=== PATIENT | female | born 1950 | race Caucasian/White ===

== ENCOUNTER 2024-01-13 09:53 | Emergency (ER) | payer OTHER, SELFPAY ==
[2024-01-13 10:02] VITALS: BP 164/95; PULSE 63; RESP 14; TEMP 36.3; O2SAT 96; BMI 16.9
--- NOTE | 2024-01-13 10:07 | ED.UPPEXIN ---
HPI - Extremity Injury (Upper) General Time Seen by Provider: 10:07 Date Seen: 01/13/24 Chief Complaint: Extremity Pain/Injury, Upper Stated Complaint: wrist injury Time Seen by Provider: 01/13/24 10:05 Source: patient and RN notes reviewed Mode of arrival: ambulatory Limitations: no limitations History of Present Illness HPI narrative: This 74-year-old female is coming in after she tripped on a curb, falling and hitting her left wrist. She did hit her chin but is not feeling any significant pain. She can open and close her jaw, feels like her teeth are normal, no dental pain. She has no headache, no loss of consciousness. She had cataract surgery this past week, feels like her vision is just mildly off. She also feels that she is baseline clumsy. She states she has some sore areas, did skin up her right lower leg, did put bandages on it. She is having no pain in the bones with walking however. Her left wrist has been fractured in does have a pin in it per her report. It is her wrist that she is concerned about which brought her here. She had no medical reason for the fall on questioning, just feels like her vision is a little off and did not gauge the curb correctly. MD complaint: injury to: left and wrist Related Data Home Medications Medication Instructions Recorded Confirmed alendronate 70 mg tablet 70 mg PO 01/13/24 Allergies Allergy/AdvReac Type Severity Reaction Status Date / Time No Known Drug Allergies Allergy Verified 01/13/24 10:01 Review of Systems Status of ROS: Reports: 6 or more systems reviewed and unremarkable except as noted in History and below [facility] Medical History Wrist fracture ?S62.109A - Fracture of unspecified carpal bone, unspecified wrist, initial encounter for closed fracture (ICD-10) Surgical History H/O wrist surgery ?Z98.890 - Other specified postprocedural states (ICD-10) Hx of tonsillectomy ?Z90.89 - Acquired absence of other organs (ICD-10) Social History Smoking Status: Never smoker Little interest or pleasure in doing things: not at all Feeling down, depressed, or hopeless: several days Exam Const: Vital Signs, click to edit/add: Vital Signs - 24 hr 01/13/24 10:02 Temperature 97.3 F L Pulse Rate [Pulse Oximeter] 63 Respiratory Rate 14 Blood Pressure [Ri ght Upper Arm] 164/95 H Pulse Oximetry 96 Oxygen Delivery Me thod Room Air Patient is alert, interactive, no apparent distress. She is ambulatory into the ED of her own accord. She has some bandages on the right lower extremity. She states ambulating is not painful in her legs. Face and head atraumatic. She has no palpable tenderness over her TMJs down to the mandible into the chin. Dentition are normal, occlude normally. Oropharynx without traumatic change. Neck supple, nontender, no masses. Breathing easily on room air, lungs sound clear. CV regular rate and rhythm, no murmur, normal S1-S2. She has normal neurovascular status of her left hand, good range of motion of the fingers. She has pain medially along the ulnar area of the wrist. No significant swelling or deformity noted. No pain up into the forearm elbow, arm or shoulder at this time. Documenting provider has reviewed patient's vital signs: yes Course Course ED Course: We will obtain images of her left wrist to rule out fracture. She will let me know if anything else becomes problematic during her time here. Reevaluation(s) Time of Reevaluation #1: 11:08 Reevaluation #1: Provided patient a copy of her x-ray report, reviewed with her that we will be doing CT imaging to better define any possible underlying fracture in the wrist. Time of Reevaluation #2: 12:53 Reevaluation #2: Patient given a copy of her CT report. There is indeed a triquetral fracture. She lives in the [facility], will plan on following up with [facility]. Have asked Radiology to get her images placed on a disc. I have subsequently placed a volar short-arm splint as advised by Orthopedics here. Consultations Consultation #1: Spoke with Dr. Diaz from Orthopedics regarding the x-ray report. He would favor a CT, he wonders if there was a triquetral avulsion fracture. If CT imaging is confirming fracture, I will splint her and have her follow up with Orthopedics. Time: 11:07 Vital Signs Vital signs: Initial Vital Signs Temperature 97.3 F L 01/13/24 10:02 Temperature Source Temporal Artery Scan 01/13/24 10:02 Pulse Rate 63 01/13/24 10:02 Respiratory Rate 14 01/13/24 10:02 Blood Pressure 164/95 H 01/13/24 10:02 Blood Pressure Mean 118 H 01/13/24 10:02 Blood Pressure Position Sitting 01/13/24 10:02 Pulse Oximetry 96 01/13/24 10:02 Oxygen Delivery Method Room Air 01/13/24 10:02 Vital Signs Temperature 97.3 F L 01/13/24 10:02 Pulse Rate 63 01/13/24 10:02 Respiratory Rate 14 01/13/24 10:02 Blood Pressure 164/95 H 01/13/24 10:02 Pulse Oximetry 96 01/13/24 10:02 Oxygen Delivery Method Room Air 01/13/24 10:02 Temperature 97.3 F L 01/13/24 10:02 Pulse Rate 63 01/13/24 10:02 Respiratory Rate 14 01/13/24 10:02 Blood Pressure 164/95 H 01/13/24 10:02 Pulse Oximetry 96 01/13/24 10:02 Oxygen Delivery Method Room Air 01/13/24 10:02 MDM - Extremity Injury (Upper) Imaging Data XR left wrist: Attestation: I have reviewed the pertinent imaging results. Radiologist's impression: Patient: TRUNG PIERRE Facility:?[facility] Patient ID:?[id number] Site Patient ID:?[id number]. Site :?1950 Study:?XRay-Extremity Left Wrist 3v-01/13/2024 10:32:00 AM Ordering Physician:?Dominique Osorio Final Report: INDICATION: Fall, pain COMPARISON: None. TECHNIQUE: Three views left wrist FINDINGS: There is a very subtle lucency through the distal scaphoid pole that could be a nondisplaced fracture. Additional subtle lucency along the dorsal margin of the 2nd carpal row on the lateral view. There is also a well-healed distal radial fracture with a volar plate and screw fixation hardware. The hardware is intact without any loosening. Normal joint alignment. Multifocal osteoarthritis. Arthritis is severe at the base of the thumb with some remodeling. No focal bone lesions. Generally low bone mineralization. Soft tissue swelling. No unexpected foreign body. IMPRESSION: Suspect nondisplaced carpal fractures involving the left scaphoid and possibly the capitate or hamate. CT may be helpful in further delineation if clinically necessary. Dictated by Kim Gutierrez MD @ 01/13/2024 10:45:06 AM (Electronic Signature) CT- Other: Attestation: I have reviewed the pertinent imaging results. Radiologist's impression: Patient: TRUNG PIERRE Facility:?[facility] Patient ID:?[id number] Site Patient ID:?[id number]. Site :?1950 Study:?CT-Extremity Left wrist w/o-01/13/2024 11:58:39 AM Ordering Physician:?ELENITA Final Report: EXAM: CT OF THE LEFT WRIST, WITHOUT CONTRAST CLINICAL INDICATION: Pain following injury. Abnormal x-ray. COMPARISON STUDIES: 01/13/2024 radiographs. TECHNICAL: Non-contrast CT of the wrist with axial images. Sagittal oblique and coronal oblique reformatted images were created. FINDINGS: OSSEOUS STRUCTURES: Radius: Volar plate and screw fixation across an old healed fracture of the distal radius. No hardware fracture or lucency adjacent to the hardware fixation. No acute fractures. Ulna: Old healed fracture deformity of the ulnar styloid. Carpals and Metacarpals: Acute fracture of the dorsal cortical margin of the triquetrum accounts for the radiographic abnormality. No additional carpal fractures are evident. JOINTS: Joint Fluid: Chondrocalcinosis throughout the wrist. No joint effusions. Joint Space: Advanced degenerative changes in the 1st CMC joint. Alignment: No subluxation or dislocation. SOFT TISSUES: No subcutaneous edema, fluid collection or hematoma. MUSCLES AND TENDONS: No intramuscular hematoma. No muscle atrophy. No retracted tendon tear. No subluxation of the extensor carpi ulnaris tendon. IMPRESSION: 1. Acute nondisplaced fracture of the dorsal triquetrum. No additional acute fractures. 2. Old healed fracture deformity of the distal radius with internal fixation. 3. Old healed ulnar styloid fracture. 4. Chondrocalcinosis in the wrist. 5. 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 Please note that all CT scans at this facility use dose modulation, iterative reconstruction, and/or weight-based dosing when appropriate to reduce radiation dose to as low as reasonably achievable. Dictated by Deniz Limon MD @ 01/13/2024 12:20:28 PM (Electronic Signature) Discharge Plan Discharge Clinical Impression: Fall Qualifiers: Encounter type: initial encounter Qualified Code(s): W19.XXXA - Unspecified fall, initial encounter Fracture of wrist Qualifiers: Encounter type: initial encounter Fracture type: closed Laterality: left Qualified Code(s): S62.102A - Fracture of unspecified carpal bone, left wrist, initial encounter for closed fracture Patient Disposition: Home, Self-Care Condition: Stable Instructions: Wrist Fracture in Adults (ED), Fall Prevention for Older Adults (ED) Additional Instructions: Keep the splint on, keep dry. Can ice and elevate this wrist as much as you are able to over the next few days to help decrease pain and swelling. Tylenol and ibuprofen per bottle directions as you normally would use for pain management. Please take the CT report and the disc to your orthopedist for review. They can give you further guidance on when they want to see you in follow-up once they have reviewed these. Prescriptions: No Action alendronate 70 mg tablet 70 mg PO Follow Up/Referrals: Generic,Amb Provider [Primary Care Provider] - Stand Alone Forms: MyHealth Info Instructions Procedures Orthopedic Splinting/Casting Injury #1: Side: left Upper Extremity Injury Location: wrist Upper extremity immobilizer: volar splint Applied by clinician: MD/DO Conclusion: patient tolerated procedure Additional Comments: Patient declines a sling.
--- NOTE | 2024-01-13 10:11 | XR_ITS ---
Patient: TRUNG PIERRE Facility:?[facility] Patient ID:?[id number] Site Patient ID:?[id number]. Site :?1950 Study:?XRay-Extremity Left Wrist 3v-01/13/2024 10:32:00 AM Ordering Physician:?Dominique Osorio Final Report: INDICATION: Fall, pain COMPARISON: None. TECHNIQUE: Three views left wrist FINDINGS: There is a very subtle lucency through the distal scaphoid pole that could be a nondisplaced fracture. Additional subtle lucency along the dorsal margin of the 2nd carpal row on the lateral view. There is also a well-healed distal radial fracture with a volar plate and screw fixation hardware. The hardware is intact without any loosening. Normal joint alignment. Multifocal osteoarthritis. Arthritis is severe at the base of the thumb with some remodeling. No focal bone lesions. Generally low bone mineralization. Soft tissue swelling. No unexpected foreign body. IMPRESSION: Suspect nondisplaced carpal fractures involving the left scaphoid and possibly the capitate or hamate. CT may be helpful in further delineation if clinically necessary. Dictated by Kim Gutierrez MD @ 01/13/2024 10:45:06 AM Signed by:?Kim Gutierrez MD @01/13/2024 10:45:06 AM (Electronic Signature)
--- NOTE | 2024-01-13 11:08 | CT_ITS ---
Patient: TRUNG PIERRE Facility:?[facility] Patient ID:?[id number] Site Patient ID:?[id number]. Site :?1950 Study:?CT-Extremity Left wrist w/o-01/13/2024 11:58:39 AM Ordering Physician:LUCIUS Final Report: EXAM: CT OF THE LEFT WRIST, WITHOUT CONTRAST CLINICAL INDICATION: Pain following injury. Abnormal x-ray. COMPARISON STUDIES: 01/13/2024 radiographs. TECHNICAL: Non-contrast CT of the wrist with axial images. Sagittal oblique and coronal oblique reformatted images were created. FINDINGS: OSSEOUS STRUCTURES: Radius: Volar plate and screw fixation across an old healed fracture of the distal radius. No hardware fracture or lucency adjacent to the hardware fixation. No acute fractures. Ulna: Old healed fracture deformity of the ulnar styloid. Carpals and Metacarpals: Acute fracture of the dorsal cortical margin of the triquetrum accounts for the radiographic abnormality. No additional carpal fractures are evident. JOINTS: Joint Fluid: Chondrocalcinosis throughout the wrist. No joint effusions. Joint Space: Advanced degenerative changes in the 1st CMC joint. Alignment: No subluxation or dislocation. SOFT TISSUES: No subcutaneous edema, fluid collection or hematoma. MUSCLES AND TENDONS: No intramuscular hematoma. No muscle atrophy. No retracted tendon tear. No subluxation of the extensor carpi ulnaris tendon. IMPRESSION: 1. Acute nondisplaced fracture of the dorsal triquetrum. No additional acute fractures. 2. Old healed fracture deformity of the distal radius with internal fixation. 3. Old healed ulnar styloid fracture. 4. Chondrocalcinosis in the wrist. 5. 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 Please note that all CT scans at this facility use dose modulation, iterative reconstruction, and/or weight-based dosing when appropriate to reduce radiation dose to as low as reasonably achievable. Dictated by Deniz Limon MD @ 01/13/2024 12:20:28 PM Signed by:?Deniz Limon MD @01/13/2024 12:20:28 PM (Electronic Signature)
== END 2024-01-13 13:08 | disposition home or self-care (01) ==
PROVIDERS: Emergency Provider Family Medicine
DX: S62.102A Fracture of unspecified carpal bone, left wrist, initial encounter for closed fracture (principal); W18.09XA Striking against other object with subsequent fall, initial encounter
CPT/HCPCS: 73110; 73200; 99283; 99284